=== PATIENT | female | born 1980 | race Caucasian/White ===

== ENCOUNTER 2019-05-11 15:54 | Emergency (ER) | payer SELFPAY ==
--- NOTE | 2019-05-11 16:50 | RADIOLOGY REPORT (SQ) ---
EXAM DESCRIPTION: ANKLE RIGHT COMPLETE COMPLETED DATE/TIME: 05/11/2019 4:39 pm REASON FOR STUDY: bone tenderness COMPARISON: None. NUMBER OF VIEWS: Three views. TECHNIQUE: AP, lateral, and oblique radiographic images acquired of the right ankle. LIMITATIONS: None. FINDINGS: MINERALIZATION: Normal. BONES: Oblique slightly displaced fracture of the distal fibula. Tiny osseous structure at the tip o f the medial malleolus. JOINTS: No dislocation. There is widening of the lateral aspect of the tibiotalar joint. SOFT TISSUES: Lateral soft tissue swelling. No foreign body. OTHER: No other significant finding. IMPRESSION: OBLIQUE SLIGHTLY DISPLACED FRACTURE OF THE DISTAL FIBULA. TINY OSSEOUS STRUCTURE AT THE TIP OF THE MEDIAL MALLEOLUS MAY REPRESENT A TINY AVULSION INJURY. TECHNICAL DOCUMENTATION: JOB ID: [id number] [employer]- All Rights Reserved Reading location - IP/workstation name: [email or web address]
--- NOTE | 2019-05-11 17:55 | ER Document Report ---
HPI - HPI Time Seen by Provider: 05/11/19 17:48 Pain Level: 4 Context: Patient is a 39-year-old female presents to the emergency department with a chief complaint of right ankle pain. 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 Patient states she did trip on grass. Patient reports she did hear a crack to the right ankle as she fell. Patient states initially yesterday she was having tingling to the foot but that has now improved. Patient states she has been elevating the foot and taking Tylenol for pain. Patient states that she is unable to bear weight on the right foot. - CONSTITUTIONAL Constitutional: DENIES: Fever, Chills - REPRODUCTIVE Reproductive: DENIES: : - MUSCULOSKELETAL Musculoskeletal: REPORTS: Extremity pain - R ankle Past Medical History - General Information source: Patient - Social History Smoking Status: Unknown if Ever Smoked Lives with: Family Family History: None Patient has suicidal ideation: No Patient has homicidal ideation: No - Past Medical History Cardiac Medical History: Reports: None Pulmonary Medical History: Reports: None EENT Medical History: Reports: None Neurological Medical History: Reports: None Endocrine Medical History: Reports: None Renal/ Medical History: Reports: None. Denies: Hx Peritoneal Dialysis Malignancy Medical History: Reports: None GI Medical History: Reports: None Musculoskeletal Medical History: Reports None Skin Medical History: Reports None Psychiatric Medical History: Reports: None Traumatic Medical History: Reports: None Infectious Medical History: Reports: None Vertical Provider Document - CONSTITUTIONAL Agree With Documented VS: Yes Exam Limitations: No Limitations General Appearance: No Apparent Distress - HEENT HEENT: Atraumatic, Normocephalic, PERRLA - NECK Neck: Normal Inspection - RESPIRATORY Respiratory: Breath Sounds Normal, No Respiratory Distress - CARDIOVASCULAR Cardiovascular: Regular Rate, Regular Rhythm - GI/ABDOMEN Gastrointestinal: Abdomen Soft, Abdomen Non-Tender - MUSCULOSKELETAL/EXTREMETIES Notes: Patient has swelling and ecchymosis to the right lateral malleolus and right lateral foot. Patient has a strong dorsalis pedis and posterior tibial pulse. Patient is able to wiggle her toes and has positive flexion extension of the right foot. Patient does have mild swelling to the medial aspect of the right malleolus. There is no obvious deformity. - NEURO Level of Consciousness: Awake, Alert, Appropriate - DERM Integumentary: Warm Course - Re-evaluation Re-evalutation: 05/11/19 18:16 I did consult with Dr. Ibarra in regards to the x-ray read. Suggests placing the patient in a short posterior leg splint, provide crutches and follow up with Orthopedics tomorrow to make an appointment. Patient was placed in a short posterior leg splint. Patient was given instructions on how to use crutches and to follow-up with orthopedics tomorrow to make an appointment. Multiple referrals were given to the patient. 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 The nurse tech did reiterate to look out for discoloration of the toes, any new numbness or tingling, or any other concerning signs or s ymptoms. Patient verbalized understanding. Patient to not weight-bear on that right foot and to use crutches until follow-up with orthopedics. Patient was given a prescription for Tylenol 3 as well as ibuprofen. Patient states she did not want anything stronger for her pain. - Vital Signs Vital signs: Temp Pulse Resp BP Pulse Ox 98.1 F 97 16 103/73 98 05/11/19 16:00 05/11/19 16:00 05/11/19 16:00 05/11/19 16:00 05/11/19 16:00 - Diagnostic Test Radiology reviewed: Reports reviewed Radiology results interpreted by me: 05/11/19 18:03 Ankle X-Ray 05/11/19 00:00 IMPRESSION: OBLIQUE SLIGHTLY DISPLACED FRACTURE OF THE DISTAL FIBULA. TINY OSSEOUS STRUCTURE AT THE TIP OF THE MEDIAL MALLEOLUS MAY REPRESENT A TINY AVULSION INJURY. Discharge - Discharge Clinical Impression: Fibula fracture Qualifiers: Encounter type: initial encounter Fibula location: distal Fracture type: closed Fracture morphology: other fracture Laterality: right Qualified Code(s): S82.831A - Other fracture of upper and lower end of right fibula, initial encounter for closed fracture Avulsion fracture of medial malleolus Qualifiers: Encounter type: initial encounter Fracture type: closed Laterality: right Qualified Code(s): S82.51XA - Displaced fracture of medial malleolus of right tibia, initial encounter for closed fracture Condition: Stable Disposition: HOME, SELF-CARE Instructions: Use of Crutches ([facility]), Ice & Elevation ([facility]), Oral Narcotic Medication ([facility]) Additional Instructions: Today you were seen in the emergency department after a fall injury. The x-ray of your right ankle does show a slightly displaced fracture of the distal fibula. There is also a tiny bony structure at the tip of the medial malleolus which may represent a tiny avulsion injury. You have been placed in a short p osterior leg splint. Please keep this clean, dry and intact. Please do not weight-bear on the affected leg and use the crutches as instructed. Please follow-up with orthopedics, call them tomorrow for a follow-up appointment. Please take the Tylenol 3 as needed for pain. Tylenol 3 does contain codeine and can make you drowsy. Do not drive or operate heavy machinery while on this medication. Prescriptions: Acetaminophen with Codeine [Tylenol #3 Tablet] 1 each PO Q4HP PRN #15 tablet PRN Reason: Ibuprofen [Motrin 800 mg Tablet] 800 mg PO Q8H PRN #30 tab PRN Reason: Forms: Return to Work Referrals: RAMÍREZ GIRON DO [ACTIVE STAFF] - Follow up as needed SRINIVASAN MERIDA MD [ACTIVE STAFF] - Follow up as needed SHARMAINE TONG MD [ACTIVE PROVISIONAL STAFF] - Follow up as needed
[2019-05-11] MEDS ORDERED: ACETAMINOPHEN WITH CODEINE #3 TABLET PO ONE (18:02)
[2019-05-11] MEDS ORDERED: IBUPROFEN 800 MG TABLET PO ONE (18:02)
[2019-05-11 18:59] VITALS: BP 111/82
== END 2019-05-11 19:00 | disposition home or self-care (01) ==
LOC: ER 15:54
PROC: 2W3QX1Z Immobilization of Right Lower Leg using Splint (ICD-10-PCS; principal; 2019-05-11)
DX: S82.831A Other fracture of upper and lower end of right fibula, initial encounter for closed fracture (principal); S82.51XA Displaced fracture of medial malleolus of right tibia, initial encounter for closed fracture; M25.571 Pain in right ankle and joints of right foot; W01.0XXA Fall on same level from slipping, tripping and stumbling without subsequent striking against object, initial encounter; Y93.02 Activity, running; Y99.0 Civilian activity done for income or pay

== ENCOUNTER 2020-10-14 11:23 | Emergency (ER) | payer SELFPAY ==
[2020-10-14] MEDS ORDERED: ACETAMINOPHEN 325 MG TABLET PO ONE (11:49)
[2020-10-14] MEDS ORDERED: LORATADINE 10 MG TABLET PO ONE (11:49)
[2020-10-14] MEDS ORDERED: PSEUDOEPHEDRINE HCL 30 MG TABLET PO ONE (11:49)
[2020-10-14] MEDS ORDERED: GUAIFENESIN 600 MG TABLET.SA PO ONE (11:49)
--- NOTE | 2020-10-14 11:50 | ER Document Report ---
ED Respiratory Problem - General Chief Complaint: Cough Stated Complaint: SORE THROAT COUGH BODY ACHES Time Seen by Provider: 10/14/20 11:48 Primary Care Provider: PAMELA DAVIS [Primary Care Provider] - Follow up as needed Mode of Arrival: Ambulatory Information source: Patient Notes: 20-year-old female presented to ED for cough cold congestion low-grade fever sore throat. He states his symptoms started yesterday as well as a headache. She states she has been around multiple people who did have Covid but she is not tested herself yet. She states she did have some nausea and vomiting and body aches today. Patient was alert oriented respirations regular nonlabored speaking in full sentences. She was nontoxic in appearance. We will get a strep flu and Covid test as well as chest x-ray if these are negative will discharge patient home. Constitutional: Grade fever HENT: Runny nose cough congestion sore throat Eyes: Negative for visual changes. Cardiovascular: Negative for chest pain. Respiratory: Cough and congestion Gastrointestinal: Nausea vomiting and diarrhea Genitourinary: Negative for dysuria. Musculoskeletal: Negative for back pain. Skin: Negative for rash. Neurological: Negative for headaches, weakness or numbness. 10 point ROS negative except as marked above and in HPI. VITAL SIGNS: Within normal limits. GENERAL: No acute distress, non-toxic appearance. HEAD: Normal with no signs of head trauma. EYES: PERRLA, EOMI, conjunctiva normal, no discharge. EARS: Hearing grossly intact. NOSE: Rhinorrhea with postnasal drip THROAT: Postnasal drip NECK: Normal range of motion, no tenderness, supple, no lymphadenopathy, No adenopathy, no JVD. CHEST: Clear breath sounds bilaterally. No wheezes, rales, or rhonchi. CARDIAC: Regular rate and rhythm. S1 and S2, without murmurs, gallops, or rubs. VASCULAR: No Edema. Peripheral pulses normal and equal in all extremities. ABDOMEN: Normal and soft with no tenderness, no masses or pulsatile masses. GASTROINTESTINAL: Bowel sounds normal GENITOURINARY: Normal, No tenderness LYMPATHTIC: No lymphadenopathy noted. MUSCULOSKELETAL: Good range of motion of all major joints. Extremities without clubbing, cyanosis or edema. NEUROLOGICAL: Alert and oriented x 3. No focal sensory or strength deficits. Speech normal. Follows commands appropriately. PSYCHIATRIC: Normal Affect, judgement and mood. SKIN: Normal appearance with no rashes or lesions. - HPI Patient complains to provider of: Cough Onset: Yesterday Duration: Intermittent episodes Initiating Event: URI Quality of pain: Achy Severity: Moderate Pain Level: 2 Cough: Nonproductive Sputum amount: None Associated symptoms: Cough, Fever - Low-grade, PND, Runny nose, Sinus pain/pressure, Short of breath, Sore Throat, Other - Body aches Similar symptoms previously: Yes Recently seen / treated by doctor: No - Related Data Allergies/Adverse Reactions: aspirin Allergy (Verified 05/11/19 15:57) Past Medical History - General Information source: Patient - Social History Smoking Status: Former Smoker Frequency of alcohol use: Social Drug Abuse: Marijuana Family History: None Patient has suicidal ideation: No Patient has homicidal ideation: No - Past Medical History Cardiac Medical History: Reports: None Pulmonary Medical History: Reports: None EENT Medical History: Reports: None Neurological Medical History: Reports: None Endocrine Medical History: Reports: None Renal/ Medical History: Reports: None Malignancy Medical History: Reports: None GI Medical History: Reports: None Musculoskeletal Medical History: Reports None Skin Medical History: Reports None Psychiatric Medical History: Reports: None Traumatic Medical History: Reports: None Infectious Medical History: Reports: None Surgical Hx: Negative Past Surgical History: Reports: None Physical Exam - Vital signs Vitals: Temp Pulse Resp BP Pulse Ox 98.3 F 103 H 20 118/85 98 10/14/20 11:28 10/14/20 11:28 10/14/20 11:28 10/14/20 11:28 10/14/20 11:28 Course - Vital Signs Vital signs: Temp Pulse Resp BP Pulse Ox 98.5 F 91 18 117/74 100 10/14/20 13:46 10/14/20 13:46 10/14/20 13:46 10/14/20 13:46 10/14/20 13:46 - Laboratory Results Critical Laboratory Results Reviewed: No Critical Results - Radiology Results Critical Radiology Results Reviewed: No Critical Results Discharge - Discharge Clinical Impression: Flu-like symptoms, Person under investigation for COVID-19 URI (upper respiratory infection) Qualifiers: URI type: supraglottitis Airway obstruction: without obstruction Qualified Code(s): J04.30 - Supraglottitis, unspecified, without obstruction Condition: Stable Disposition: HOME, SELF-CARE Instructions: COVID-19 Guidance for Persons Under Investigation Additional Instructions: UPPER RESPIRATORY ILLNESS: You have a viral infection of the respiratory passages -- a "cold." This common infection causes nasal congestion, drainage, and often sore throat and cough. It is highly contagious. The disease usually lasts about 10 to 14 days. There is no "cure" for the viral infection -- it must run its course. If there is a complication, such as bacterial infection in the nose, sinuses, middle ear, or bronchial tubes, antibiotics may be required. The antibiotics won't affect the virus. Drink plenty of fluids. A humidifier may help. An expectorant medication or decongestant may make you more comfortable. Use acetaminophen or ibuprofen for fever or aches. See the doctor if fever persists over two days, if there is any significant worsening of your symptoms, or if you simply fail to improve as expected. You have been recommended treatment with Claritin 10 mg Sudafed 30 mg and Mu cinex 600 mg. These are all egwb-vjg-jtaiwgb medications for cough cold congestion. You do need to call the go to the pharmacist to get the Sudafed from behind the counter please get a little red pills they are more effective. You could also use Flonase which is fiqn-mpb-aocwrrs 1 spray each nostril twice a day. You could also use salt soda solution gargles. These will help to remove the drainage from the back your throat. Chloraseptic spray was pyga-ikh-[id number] that will also help with your sore throat. Salt and soda solution gargle 1 quart of water 1 tablespoon of salt 1 teaspoon of baking soda Mixed 3 ingredients together and boil for 1 minute Placed in a covered quart jar Use 1/2 ounce of cold solution to gargle 3 times a day USE OF ACETAMINOPHEN (Tylenol): Acetaminophen may be taken for pain relief or fever control. It's much safer than aspirin, offering a wider range of "safe" dosages. It is safe during . Some brand names are Tylenol, Panadol, Datril, Anacin 3, Tempra, and Liquiprin. Acetaminophen can be repeated every four hours. The following are maximum recommended dosages: >89 pounds or adults 650 mg to 900 mg Acetaminophen can be repeated every four hours. Maximum dose not to exceed 4000 mg a day. SMOKING: If you smoke, you should stop smoking. The tar and chemicals in cigarette smoke are harmful. Smoking has been shown to cause: emphysema chronic bronchitis lung cancer mouth and throat cancer stomach and pancreas cancer premature aging defects In addition, smoking increases ear and lung infections in children of smokers. FOLLOW-UP CARE: If you have been referred to a physician for follow-up care, call the physicians office for an appointment as you were instructed or within the next two days. If you experience worsening or a significant change in your symptoms, notify the physician immediately or return to the Emergency Department at any time for re-evaluation. Referrals: LOCALMD,NO [Primary Care Provider] - Follow up as needed
--- NOTE | 2020-10-14 12:22 | RADIOLOGY REPORT (SQ) ---
EXAM DESCRIPTION: CHEST SINGLE VIEW IMAGES COMPLETED DATE/TIME: 10/14/2020 12:14 pm REASON FOR STUDY: Cough congestion sore throat COMPARISON: None. EXAM PARAMETERS: NUMBER OF VIEWS: One view. TECHNIQUE: Single frontal radiographic view of the chest acquired. RADIATION DOSE: NA LIMITATIONS: None. FINDINGS: LUNGS AND PLEURA: No opacities, masses or pneumothorax. No pleural effusion. MEDIASTINUM AND HILAR STRUCTURES: No masses. Contour normal. HEART AND VASCULAR STRUCTURES: Heart normal in size. Normal vasculature. BONES: No acute findings. HARDWARE: None in the chest. OTHER: No other significant finding. IMPRESSION: NO ACUTE RADIOGRAPHIC FINDING IN THE CHEST. TECHNICAL DOCUMENTATION: JOB ID: [id number] 2010 [employer]- All Rights Reserved Reading location - IP/workstation name: [email or web address]
[2020-10-14 12:31] LABS: A TYPE INFLUENZA AG NEGATIVE (NEGATIVE); B INFLUENZA AG NEGATIVE (NEGATIVE)
[2020-10-14 13:49] VITALS: BP 117/74
== END 2020-10-14 13:46 | disposition home or self-care (01) ==
LOC: ER 11:23
DX: J04.30 Supraglottitis, unspecified, without obstruction (principal); R05 Cough; R50.9 Fever, unspecified; J02.9 Acute pharyngitis, unspecified; R51.9 Headache, unspecified; R11.2 Nausea with vomiting, unspecified; R19.7 Diarrhea, unspecified; J34.89 Other specified disorders of nose and nasal sinuses; R09.82 Postnasal drip; F12.10 Cannabis abuse, uncomplicated; Z87.891 Personal history of nicotine dependence; Z88.8 Allergy status to other drugs, medicaments and biological substances; Z20.822 Contact with and (suspected) exposure to COVID-19
CPT/HCPCS: 99284; 36415; 87070; 87880; 87635; 87804; 71045; C9803